=== PATIENT | male | born 1985 | race American Indian/Alaskan Native ===

== ENCOUNTER 2022-01-31 23:53 | Emergency (ER) | payer SELFPAY ==
[2022-02-01] VITALS: BP 116/82
[2022-02-01] MEDS ORDERED: ASPIRIN 325 MG TAB PO ONE
--- NOTE | 2022-02-01 00:42 | XRay Report ---
CHEST 2 VIEWS INDICATION / CLINICAL INFORMATION: Chest Pain. COMPARISON: 01/27/13. FINDINGS: SUPPORT DEVICES: None. HEART / MEDIASTINUM: The heart size and pulmonary vasculature are normal. The aorta is normal in reji mamie. LUNGS / PLEURA: No significant pulmonary or pleural abnormality. No pneumothorax. ADDITIONAL FINDINGS: There is a nonspecific calcification in the right upper abdomen which could repr esent a gallstone. IMPRESSION: 1. No acute findings. 2. Nonspecific calcification in the right upper quadrant could represent a gallstone. Signer Name: Dhaval Grace MD Signed: 02/01/2022 12:37 AM Workstation Name: [id number]
[2022-02-01 00:50] LABS: Basophils % (Auto) 0.3 % (0.0-1.8); Eosinophils # (Auto) 0.3 K/mm3 (0.0-0.4); Eosinophils % (Auto) 3.5 % (0.0-4.3); Hemoglobin 14.3 gm/dl (11.8-15.2); Lymphocytes # (Auto) 3.5 K/mm3 (1.2-5.4); Mean Corpuscular HGB Conc 33 % (32-34); Mean Corpuscular Volume 96 fl (84-94); Monocytes % (Auto) 9.7 % (0.0-7.3); Platelet Count 184 K/mm3 (140-440); Red Cell Distribution Width 13.7 % (13.2-15.2)
[2022-02-01 01:42] LABS: Alanine Aminotransferase 19 units/L (7-56); Albumin 4.2 g/dL (3.9-5); BUN/Creatinine Ratio 16; Blood Urea Nitrogen 16 mg/dL (9-20); Calcium 8.9 mg/dL (8.4-10.2); Hemolysis Index 26
--- NOTE | 2022-02-01 10:57 | Electrocardiograph Report ---
[facility] Test Date: 2022-02-01 Test Time: 00:08:57 Pat Name: MARYURI KENNY Department: Room: Gender: M [employer]: PURA : 1985 Requested By: ED DOC Order Number: [id number] Reading MD: Lee Huizar Measurements Intervals [place] Rate: 70 P: 73 PA: 135 QRS: 75 QRSD: 59 T: 60 QT: 359 QTc: 387 Interpretive Statements Sinus rhythm Probable left atrial enlargement ST elevation suggests acute pericarditis No previous ECG available for comparison Electronically Signed On 02-01-2022 10:56:54 EDT by Lee Huizar
== END 2022-02-01 07:00 | disposition left against medical advice (07) ==
LOC: ED 23:53
DX: R07.9 Chest pain, unspecified (principal); Z53.21 Procedure and treatment not carried out due to patient leaving prior to being seen by health care provider
CPT/HCPCS: 36415; 71046; 80048; 80053; 84484; 85025; 85379; 93005